=== PATIENT | female | born 1930 ===

== ENCOUNTER 2018-10-09 08:31 | Emergency (ER) | payer OTHER ==
[~2018-10-09] VITALS: Ht 149.9 cm; Wt 66.2 kg
[2018-10-09] MEDS ORDERED: PNEU16DI2 (08:43)
[2018-10-09] MEDS ORDERED: LANOXIN125 MCG (08:43)
[2018-10-09] MEDS ORDERED: SYNTHROID88 MCG (08:44)
== END 2018-10-09 16:35 | disposition home or self-care (01) ==
LOC: ER 08:31 → EDBD 09:00 → ER 09:00 → CPU-OBS 09:00 → ER 16:35
DX: K21.9 Gastro-esophageal reflux disease without esophagitis (principal); R07.89 Other chest pain

== ENCOUNTER 2018-10-12 04:07 | Emergency (ER) | payer OTHER ==
[~2018-10-12] VITALS: Ht 149.9 cm; Wt 65.8 kg
[~2018-10-12 04:07] MED LIST: LANOXIN125 MCG; PNEU16DI2; SYNTHROID88 MCG
[2018-10-12] MEDS ORDERED: PEPCID AC20 MG PO (07:35)
[2018-10-12] MEDS ORDERED: INTESTINEX680 M1 PO (07:35)
== END 2018-10-12 09:05 | disposition home or self-care (01) ==
LOC: ER 04:07
DX: K30 Functional dyspepsia (principal); R14.2 Eructation; R06.02 Shortness of breath